=== PATIENT | female | born 1970 | race Caucasian/White ===

== ENCOUNTER 2018-07-11 06:24 | Observation (INO) | payer OTHER ==
[~2018-07-11] VITALS: Ht 160 cm; Wt 102.7 kg
--- NOTE | 2018-07-11 06:51 | NUR ---
PT PRESENTED TO ED WITH BILATERAL LOWER QUADRANT ABD PAIN FOR A FEW DAYS. PT STATED SHE HAD BLOODY STOOL X 1 TODAY WITH BRIGHT RED BLOOD. PT WITH BACK PAIN AND HEADACHE. PT A&OX4. PT PLACED IN ROOM AND PLACED ON BP AND CONT. PULSE OXIMETER. ASSESSMENT COMPLETED. PA AT BEDSIDE
[2018-07-11 07:19] LABS: BASOPHILS # (AUTO) 0.07 x10^3/uL (0-0.1); BASOPHILS % (AUTO) 1 % (0-1); EOSINOPHILS # (AUTO) 0.14 x10^3/uL (0-0.4); EOSINOPHILS % (AUTO) 2 % (1-7); LYMPHOCYTES # (AUTO) 1.59 x10^3/uL (1-3.4); LYMPHOCYTES % (AUTO) 27 % (22-44); MD NO; MEAN CORPUSCULAR HEMOGLOBIN 31.4 pg (27.0-34.8); MEAN CORPUSCULAR HGB CONC 33.6 g/dL (32.4-35.8); MEAN CORPUSCULAR VOLUME 93.3 fL (80-100); MEAN PLATELET VOLUME 8.8 fL (7.4-10.4); MONOCYTES # (AUTO) 0.45 x10^3/uL (0.2-0.8); MONOCYTES % (AUTO) 8 % (2-9); NEUTROPHILS # (AUTO) 3.74 x10^3/uL (1.8-6.8); NEUTROPHILS % (AUTO) 63 % (42-75); PLATELET COUNT 237 x10^3/uL (130-400); RED BLOOD COUNT 4.73 x10^6/uL (3.82-5.3)
[2018-07-11 07:31] LABS: ALANINE AMINOTRANSFERASE 49 U/L (12-78); ALBUMIN 3.6 g/dL (3.4-5.0); ANION GAP 4 mmol/L (5-15); CALCIUM 8.9 mg/dL (8.5-10.1); CHLORIDE 112 mmol/L (98-107); CREATININE 0.64 mg/dL (0.55-1.02)
[2018-07-11 07:33] LABS: ALKALINE PHOSPHATASE 147 U/L (45-117); BILIRUBIN,TOTAL 0.5 mg/dL (0.2-1.0); TOTAL PROTEIN 7.6 g/dL (6.4-8.2)
[2018-07-11] MEDS ORDERED: POTA10TA PO (08:06)
[2018-07-11] MEDS ORDERED: FLUO20CA8 PO (08:07)
--- NOTE | 2018-07-11 08:30 | NUR ---
PT RESTING IN BED AWAITING FURTHER TEST RESULTS.
[2018-07-11 09:03] LABS: CULTURE INDICATED? NO; MICROSCOPIC AUTO
[2018-07-11] MEDS ORDERED: ONDANSETRON 2MG/ML, 2ML IVPush ONE (09:30)
[2018-07-11] MEDS ORDERED: SODIUM CHLORIDE FLUSH 10ML SYR IVF ONE (09:30)
[2018-07-11] MEDS ORDERED: ONDANSETRON 2MG/ML, 2ML ONE (09:39)
[2018-07-11] MEDS ORDERED: HYDROmorphone 1 MG/ML, 1ML ONE ×2 (09:40→10:17)
[2018-07-11] MEDS: HYDROmorphone 2 MG/ML, 1ML IVPush PRN ×2 (09:58→10:21)
--- NOTE | 2018-07-11 09:59 | NUR ---
PT TAKEN TO CT SCAN
[2018-07-11] MEDS ORDERED: OMNIPAQUE 350 MG/ML, 100ML BOTTLE ONE (10:08)
[2018-07-11] MEDS ORDERED: METRONIDAZOLE PMX 500MG/100ML 100 ML IV ONE (10:30)
[2018-07-11] MEDS ORDERED: CEFOTETAN PMX 1GM/50ML 50 ML IV ONE (10:30)
[2018-07-11] MEDS ORDERED: CEFOTETAN PMX 1GM/50ML 50 ML ONE (11:02)
[2018-07-11] MEDS ORDERED: LISI-167 PO (11:14)
[2018-07-11] MEDS ORDERED: METO25TA35 PO (11:14)
--- NOTE | 2018-07-11 11:58 | NUR ---
PT WITH ABD PAIN OF 7/10. DILAUDID 0.5MG IV GIVEN
[2018-07-11] MEDS ORDERED: LABETALOL 5MG/ML, 20ML IVPush PRN (12:00)
[2018-07-11] MEDS ORDERED: DOCUSATE 100 MG CAPSULE PO PRN (12:00)
[2018-07-11] MEDS ORDERED: hydrALAzine 20 MG/ML, 1ML IVPush PRN (12:00)
[2018-07-11] MEDS ORDERED: ONDANSETRON 2MG/ML, 2ML IVPush PRN (12:00)
[2018-07-11] MEDS ORDERED: ONDANSETRON ODT 4 MG PO PRN (12:00)
[2018-07-11] MEDS ORDERED: POLYETHYLENE GLYCOL 17 GM PACKET PO PRN (12:00)
[2018-07-11] MEDS ORDERED: IBUPROFEN 600 MG TABLET PO PRN (12:00)
--- NOTE | 2018-07-11 12:12 | NUR ---
attempted to call report and rn not available.
--- NOTE | 2018-07-11 12:21 | NUR ---
report given to yumiko kimble.
[2018-07-11] MEDS ORDERED: METRONIDAZOLE PMX 500MG/100ML 100 ML ONE (12:22)
[2018-07-11] MEDS: METOPROLOL TARTRATE 25 MG TABLET PO SCH (12:53)
[2018-07-11] MEDS ORDERED: ACETAMINOPHEN 325 MG TABLET ONE (12:58)
[2018-07-11] MEDS ORDERED: KETOROLAC 30 MG/1 ML ONE (12:58)
[2018-07-11] MEDS: ACETAMINOPHEN 325 MG TABLET PO PRN ×3 (13:09→23:00)
[2018-07-11] MEDS: KETOROLAC 30 MG/1 ML IV PRN ×2 (13:09→23:00)
[2018-07-11 13:27] LABS: HEMOGLOBIN A1C 5.9 % (4.2-6.3)
[2018-07-11 13:28] VITALS: BP 142/90
[2018-07-11 19:56] VITALS: BP 156/96
[2018-07-11] MEDS: AMOXICILLIN/CLAV 875-125MG TABLET PO SCH (20:42)
[2018-07-11] MEDS: LISINOPRIL 10 MG TABLET PO SCH (20:42)
[2018-07-12 00:50] VITALS: BP 156/100
[2018-07-12] MEDS: ACETAMINOPHEN 325 MG TABLET PO PRN ×2 (04:22→08:50)
[2018-07-12 05:27] LABS: BASOPHILS # (AUTO) 0.03 x10^3/uL (0-0.1); BASOPHILS % (AUTO) 1 % (0-1); EOSINOPHILS # (AUTO) 0.17 x10^3/uL (0-0.4); EOSINOPHILS % (AUTO) 3 % (1-7); LYMPHOCYTES # (AUTO) 1.53 x10^3/uL (1-3.4); LYMPHOCYTES % (AUTO) 29 % (22-44); MD NO; MEAN CORPUSCULAR HEMOGLOBIN 31.8 pg (27.0-34.8); MEAN CORPUSCULAR HGB CONC 34.2 g/dL (32.4-35.8); MEAN CORPUSCULAR VOLUME 92.8 fL (80-100); MEAN PLATELET VOLUME 8.6 fL (7.4-10.4); MONOCYTES # (AUTO) 0.33 x10^3/uL (0.2-0.8); MONOCYTES % (AUTO) 6 % (2-9); NEUTROPHILS # (AUTO) 3.24 x10^3/uL (1.8-6.8); NEUTROPHILS % (AUTO) 61 % (42-75); PLATELET COUNT 216 x10^3/uL (130-400); RED BLOOD COUNT 4.37 x10^6/uL (3.82-5.3); RED CELL DISTRIBUTION WIDTH 13.1 % (9.6-15.2)
[2018-07-12 05:40] LABS: ALBUMIN 3.2 g/dL (3.4-5.0); ANION GAP 4 mmol/L (5-15); CALCIUM 8.4 mg/dL (8.5-10.1); CHLORIDE 109 mmol/L (98-107)
[2018-07-12 05:44] LABS: ALANINE AMINOTRANSFERASE 69 U/L (12-78); ALKALINE PHOSPHATASE 139 U/L (45-117); BILIRUBIN,TOTAL 0.6 mg/dL (0.2-1.0); CREATININE 0.55 mg/dL (0.55-1.02); TOTAL PROTEIN 6.8 g/dL (6.4-8.2)
[2018-07-12 07:55] VITALS: BP 172/92
[2018-07-12] MEDS: LISINOPRIL 10 MG TABLET PO SCH (08:30)
[2018-07-12] MEDS: AMOXICILLIN/CLAV 875-125MG TABLET PO SCH (08:30)
[2018-07-12] MEDS: METOPROLOL TARTRATE 25 MG TABLET PO SCH (08:31)
[2018-07-12] MEDS: KETOROLAC 30 MG/1 ML IV PRN (08:50)
[2018-07-12] MEDS ORDERED: AMOX1TAB12 PO (12:06)
[2018-07-12] MEDS ORDERED: DOCU-131 PO (12:06)
[2018-07-12] MEDS ORDERED: ONDA4TAB13 PO (12:06)
== END 2018-07-12 14:39 | disposition home or self-care (01) ==
LOC: ED 08:15 → EDIP 10:19 → INTOOBSV 10:19 → 3NE 13:05 → DCLOUNGE 07-12 14:22
PROVIDERS: ADMIT Hospitalist; ATTEND Hospitalist
DX: K57.33 Diverticulitis of large intestine without perforation or abscess with bleeding (principal); I10 Essential (primary) hypertension; E66.9 Obesity, unspecified
CPT/HCPCS: 36415; 74177; 80053; 81001; 83036; 83690; 85025; 93005; 96365; 96367; 96375; 96376; 99284; G0378; J1170; J1885; J2405; J3490; Q9967

== ENCOUNTER → 2018-09-09 | Outpatient (CLI) | payer OTHER ==
[~2018-09-09] MED LIST: AMOX1TAB12 PO; DOCU-131 PO; FLUO20CA8 PO; LISI-167 PO; METO25TA35 PO; OMNIPAQUE 350 MG/ML, 100ML BOTTLE ONE; ONDA4TAB13 PO; POTA10TA PO
== END | disposition home or self-care (01) ==
LOC: CFH 09:35
PROVIDERS: ATTEND Nurse Practitioner
DX: K57.30 Diverticulosis of large intestine without perforation or abscess without bleeding (principal); K57.32 Diverticulitis of large intestine without perforation or abscess without bleeding; I51.7 Cardiomegaly; K76.0 Fatty (change of) liver, not elsewhere classified; Z90.49 Acquired absence of other specified parts of digestive tract
CPT/HCPCS: 74177; Q9967

== ENCOUNTER 2018-09-10 08:07 | Emergency (ER) | payer OTHER ==
[~2018-09-10] VITALS: Ht 160 cm; Wt 99.3 kg
[~2018-09-10 08:07] MED LIST changes: -OMNIPAQUE 350 MG/ML, 100ML BOTTLE ONE
--- NOTE | 2018-09-10 08:29 | NUR ---
FIRST CONTACT WITH PT. Per pt, "I tripped yesterday and fell going back to my car from the - because I forgot what gas pump I was on." Pt denies cp, sob, n/v/d, head trauma, dizziness, lightheadedness. Pt states 10/10 RLE pain. Pt has swelling and eccymosis of RLE. Pt states last time she ate waas around 7-8 pm on 09/09/18. Pt states she took ibuprofen around 6 am this morning and some water.
[2018-09-10] MEDS ORDERED: HYDROcodone/APAP 5/325 TABLET PO ONE (08:30)
[2018-09-10] MEDS ORDERED: DIPH,PERTUSS(ACELL),TET VAC/PF 0.5 ML IM-VACC ONE ×2 (08:49→09:00)
[2018-09-10] MEDS ORDERED: HYDROcodone/APAP 5/325 TABLET ONE (08:49)
--- NOTE | 2018-09-10 08:52 | NUR ---
Went to provide pt medicaiton per EMAR. Pt transported on gurney to imaging.
--- NOTE | 2018-09-10 08:55 | NUR ---
Provided bedside report to DILSHAD Lee. Pt not at bedside, pt at imaging. All questions answered. DILSHAD Lee to assume care of pt.
[2018-09-10 09:04] VITALS: BP 188/119
--- NOTE | 2018-09-10 09:11 | NUR ---
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 Remains hypertensive, but asymptomatic. Patient states hse did not take her BP meds this AM.
--- NOTE | 2018-09-10 10:03 | NUR ---
Patient/Caregiver given discharge instructions and they have confirmed that they understand the instructions. Patient ambulatory with steady gait with crutches.
== END 2018-09-10 10:04 ==
LOC: ED 08:29
DX: S80.01XA Contusion of right knee, initial encounter (principal); S50.02XA Contusion of left elbow, initial encounter; S50.312A Abrasion of left elbow, initial encounter; I10 Essential (primary) hypertension; W01.0XXA Fall on same level from slipping, tripping and stumbling without subsequent striking against object, initial encounter; Y93.89 Activity, other specified; Y92.410 Unspecified street and highway as the place of occurrence of the external cause; Y99.8 Other external cause status
CPT/HCPCS: 29505; 90471; 90715; 99283

== ENCOUNTER 2019-04-23 05:18 | Emergency (ER) | payer OTHER ==
[~2019-04-23] VITALS: Ht 157.5 cm; Wt 105.0 kg
[2019-04-23] MEDS ORDERED: ACETAMINOPHEN 500 MG TABLET PO ONE (06:30)
[2019-04-23] MEDS ORDERED: ONDANSETRON ODT 4 MG PO ONE (06:30)
[2019-04-23 06:51] LABS: RAPID INFLUENZA A Negative (Negative); RAPID INFLUENZA B Negative (Negative)
[2019-04-23 06:56] LABS: BASOPHILS # (AUTO) 0.02 x10^3/uL (0-0.1); BASOPHILS % (AUTO) 1 % (0-1); EOSINOPHILS # (AUTO) 0.12 x10^3/uL (0-0.4); EOSINOPHILS % (AUTO) 3 % (1-7); LYMPHOCYTES % (AUTO) 29 % (22-44); MD NO; MEAN CORPUSCULAR HEMOGLOBIN 31.8 pg (27.0-34.8); MEAN CORPUSCULAR HGB CONC 33.3 g/dL (32.4-35.8); MEAN CORPUSCULAR VOLUME 95.6 fL (80-100); MEAN PLATELET VOLUME 8.3 fL (7.4-10.4); MONOCYTES # (AUTO) 0.29 x10^3/uL (0.2-0.8); MONOCYTES % (AUTO) 7 % (2-9); NEUTROPHILS # (AUTO) 2.79 x10^3/uL (1.8-6.8); NEUTROPHILS % (AUTO) 62 % (42-75); PLATELET COUNT 207 x10^3/uL (130-400); RED BLOOD COUNT 4.72 x10^6/uL (3.82-5.3); RED CELL DISTRIBUTION WIDTH 13.3 % (9.6-15.2)
--- NOTE | 2019-04-23 06:56 | NUR ---
REPORT TO RASHIDA YUNG
--- NOTE | 2019-04-23 06:58 | NUR ---
REPORT RECEIVED FROM ELA YUNG.
[2019-04-23] MEDS ORDERED: ACETAMINOPHEN 500 MG TABLET ONE (07:00)
[2019-04-23] MEDS ORDERED: ONDANSETRON ODT 4 MG ONE (07:00)
--- NOTE | 2019-04-23 07:02 | NUR ---
PT MEDICATED PER EMAR. PT TOLERATED WELL.
[2019-04-23 07:06] LABS: ALANINE AMINOTRANSFERASE 75 U/L (12-78); ALBUMIN 3.8 g/dL (3.4-5.0); ANION GAP 4 mmol/L (5-15); CHLORIDE 108 mmol/L (98-107); CREATININE 0.58 mg/dL (0.55-1.02)
[2019-04-23 07:11] LABS: ALKALINE PHOSPHATASE 151 U/L (45-117); BILIRUBIN,TOTAL 0.3 mg/dL (0.2-1.0); TOTAL PROTEIN 7.3 g/dL (6.4-8.2); TROPONIN I < 0.015 ng/mL (0.000-0.045)
[2019-04-23 07:57] VITALS: BP 154/94
--- NOTE | 2019-04-23 07:59 | NUR ---
PT RESTING IN [facility]. PT'S AOX4. RESPS EVEN AND UNLABORED.
--- NOTE | 2019-04-23 08:06 | NUR ---
Patient given discharge instructions and they have confirmed that they understand the instructions. Patient ambulatory with steady gait.
== END 2019-04-23 08:07 | disposition home or self-care (01) ==
LOC: ED 06:45
DX: R07.89 Other chest pain (principal); I10 Essential (primary) hypertension; R11.2 Nausea with vomiting, unspecified; Z90.49 Acquired absence of other specified parts of digestive tract
CPT/HCPCS: 36415; 71045; 80053; 84145; 84484; 85025; 87400; 93005; 99284; Q0162

== ENCOUNTER 2019-12-13 06:07 | Emergency (ER) | payer BC, OTHER ==
[~2019-12-13] VITALS: Ht 160 cm; Wt 105.1 kg
[~2019-12-13 06:07] MED LIST changes: +FLUO20CA23 PO; -FLUO20CA8 PO
--- NOTE | 2019-12-13 06:29 | NUR ---
assessment made. PA at bedside. c/o diffused abdominal pain x 2 weeks. pain radiates to lower back. denies painful urination.
--- NOTE | 2019-12-13 06:54 | NUR ---
blood drawn, urine sent to lab. report to DILSHAD Banuelos
[2019-12-13 07:03] LABS: BASOPHILS # (AUTO) 0.02 x10^3/uL (0-0.1); BASOPHILS % (AUTO) 0 % (0-1); EOSINOPHILS # (AUTO) 0.13 x10^3/uL (0-0.4); EOSINOPHILS % (AUTO) 2 % (1-7); LYMPHOCYTES # (AUTO) 1.42 x10^3/uL (1-3.4); LYMPHOCYTES % (AUTO) 27 % (22-44); MD NO; MEAN CORPUSCULAR HEMOGLOBIN 31.1 pg (27.0-34.8); MEAN CORPUSCULAR HGB CONC 33.5 g/dL (32.4-35.8); MEAN CORPUSCULAR VOLUME 92.9 fL (80-100); MONOCYTES # (AUTO) 0.37 x10^3/uL (0.2-0.8); MONOCYTES % (AUTO) 7 % (2-9); NEUTROPHILS # (AUTO) 3.43 x10^3/uL (1.8-6.8); NEUTROPHILS % (AUTO) 64 % (42-75); PLATELET COUNT 231 x10^3/uL (130-400); RED BLOOD COUNT 4.68 x10^6/uL (3.82-5.3); RED CELL DISTRIBUTION WIDTH 13.3 % (9.6-15.2)
[2019-12-13 07:15] VITALS: BP 161/101
[2019-12-13 07:15] LABS: ALANINE AMINOTRANSFERASE 25 U/L (12-78); ALBUMIN 4.1 g/dL (3.4-5.0); ANION GAP 6 mmol/L (5-15); CALCIUM 8.9 mg/dL (8.5-10.1); CHLORIDE 108 mmol/L (98-107); CREATININE 0.59 mg/dL (0.55-1.02)
[2019-12-13 07:19] LABS: ALKALINE PHOSPHATASE 122 U/L (45-117); BILIRUBIN,TOTAL 0.4 mg/dL (0.2-1.0); TOTAL PROTEIN 7.6 g/dL (6.4-8.2)
[2019-12-13 07:23] LABS: MICROSCOPIC NOT IND
[2019-12-13] MEDS ORDERED: HYDROcodone/APAP 5/325 TABLET ONE (07:33)
--- NOTE | 2019-12-13 07:36 | NUR ---
PT MEDICATED PER MAR
[2019-12-13] MEDS ORDERED: HYDROcodone/APAP 5/325 TABLET PO ONE (08:00)
--- NOTE | 2019-12-13 08:28 | NUR ---
PT TO US AT THIS TIME
== END 2019-12-13 09:31 | disposition home or self-care (01) ==
LOC: ED 07:01
DX: R10.2 Pelvic and perineal pain (principal); M54.6 Pain in thoracic spine; I10 Essential (primary) hypertension; I25.2 Old myocardial infarction; Z90.49 Acquired absence of other specified parts of digestive tract
CPT/HCPCS: 36415; 76830; 80053; 81003; 83690; 84703; 85025; 93005; 99285

== ENCOUNTER 2020-09-27 19:47 | Emergency (ER) | payer BC ==
[~2020-09-27] VITALS: Ht 160 cm; Wt 100.7 kg
[2020-09-27] MEDS ORDERED: LIDOCAINE-MPF 1%, 5ML INFIL ONE (20:00)
[2020-09-27] MEDS ORDERED: DIPH,PERTUSS(ACELL),TET VAC/PF 0.5 ML IM-VACC ONE ×2 (20:00→23:12)
[2020-09-27] MEDS ORDERED: LIDOCAINE-MPF 1%, 5ML ONE (23:05)
--- NOTE | 2020-09-27 23:16 | NUR ---
erp at bedside to remove fish hook
[2020-09-27 23:24] VITALS: BP 163/96
[2020-09-27] MEDS ORDERED: NEOSPORIN OINT. PKT 1 PACKET ONE (23:33)
== END 2020-09-27 23:45 | disposition home or self-care (01) ==
LOC: ED 20:17
DX: S61.246A Puncture wound with foreign body of right little finger without damage to nail, initial encounter (principal); I10 Essential (primary) hypertension; Z90.49 Acquired absence of other specified parts of digestive tract; X58.XXXA Exposure to other specified factors, initial encounter; Y93.89 Activity, other specified; Y92.009 Unspecified place in unspecified non-institutional (private) residence as the place of occurrence of the external cause; Y99.8 Other external cause status
CPT/HCPCS: 90471; 90715